=== PATIENT | male | born 1950 | race Caucasian/White ===

== ENCOUNTER 2019-06-04 09:19 | Emergency (ER) | payer MEDICARE ==
[~2019-06-04] VITALS: Ht 177.8 cm; Wt 91.4 kg
[~2019-06-04 09:19] MED LIST: ASPI81CH33 PO; CARV6.25 PO; CLON0.5T17 PO; FAMO20TA PO; FINA5TAB2 PO; MEMA10TA19 PO; NATU1TAB5 PO; PRAV40TA2 PO; TAMS1CAP17 PO
[2019-06-04 11:59] VITALS: O2SAT 94
[2019-06-04 12:38] LABS: HEMATOCRIT 45.4 % (42.0-52.0); HEMOGLOBIN 15.6 g/dl (13.5-17.5); MEAN CORPUSCULAR HEMOGLOBIN 34.2 pg (27.0-33.0); MEAN CORPUSCULAR HGB CONC 34.4 g/dl (32.0-36.5); MEAN CORPUSCULAR VOLUME 99.6 fl (80.0-96.0); PLATELET COUNT, AUTOMATED 168 10^3/uL (150-450); RED BLOOD COUNT 4.56 10^6/uL (4.30-6.10); WHITE BLOOD COUNT 7.9 10^3/uL (4.0-10.0)
[2019-06-04 13:12] LABS: ACETAMINOPHEN LEVEL < 2.0 UG/ML (10.0-30.0); ALBUMIN 4.2 GM/DL (3.2-5.2); ALT/SGPT 29 U/L (12-78); BILIRUBIN,DIRECT 0.2 MG/DL (0.0-0.2); BILIRUBIN,TOTAL 0.9 MG/DL (0.2-1.0); BLOOD UREA NITROGEN 18 MG/DL (7-18); CALCIUM LEVEL 9.4 MG/DL (8.8-10.2); CARBON DIOXIDE LEVEL 27 MEQ/L (21-32); CHLORIDE LEVEL 106 MEQ/L (98-107); CK-MB VALUE MASS 1.7 NG/ML (<3.6); CPK CREATINE PHOSPHOKINASE 101 U/L (39-308); CREATININE FOR GFR 1.02 MG/DL (0.70-1.30); ETHYL ALCOHOL (ETHANOL) < 0.003 % (0.000-0.010); GLOMERULAR FILTRATION RATE > 60.0 (>49); GLUCOSE, FASTING 104 MG/DL (70-100); MB/CK RELATIVE INDEX 1.68 (< OR =4); NT-PRO BNP 355 PG/ML (<125); POTASSIUM SERUM 4.1 MEQ/L (3.5-5.1); SALICYLATE LEVEL < 1.7 MG/DL (5.0-30.0); SODIUM LEVEL 141 MEQ/L (136-145); THYROID STIMULATING HORMONE 0.839 uIU/ML (0.358-3.740); TOTAL PROTEIN 7.3 GM/DL (6.4-8.2); TROPONIN I 0.02 NG/ML (< 0.10)
[2019-06-04 14:05] LABS: AMPHETAMINES LEVEL URINE NEGATIVE (NEGATIVE); BARBITURATES URINE NEGATIVE (NEGATIVE); BENZODIAZEPINES URINE NEGATIVE (NEGATIVE); CANNABINOIDS URINE NEGATIVE (NEGATIVE); COCAINE METABOLITE URINE NEGATIVE (NEGATIVE); METHADONE URINE NEGATIVE (NEGATIVE); OPIATES URINE NEGATIVE (NEGATIVE); PHENCYCLIDINE URINE NEGATIVE (NEGATIVE)
--- NOTE | 2019-06-04 14:26 | REP ---
CT brain without contrast: History: Altered mental status. No comparison CT study. 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 There is moderate vascular calcification in the distal carotid arteries. Bone window settings demonstrate an intact bony calvarium. No paranasal sinus disease or intraorbital abnormality is appreciated. On soft tissue window settings, there is minimal generalized volume loss. There is no evidence of intracranial hemorrhage. No mass, infarct, extra-axial fluid collection, or midline shift is seen. Impression: Minimal volume loss and vascular calcification. No acute intracranial abnormality. Electronically Signed by Star Berkowitz MD 06/04/2019 03:12 P
--- NOTE | 2019-06-04 14:33 | REP ---
REASON: Dyspnea. COMPARISON: None. There has been previous median sternotomy. The heart is mildly enlarged. The interstitial markings are mildly and diffusely increased. There is a haziness throughout the pulmonary vascularity with mild pulmonary vascular redistribution. There are no patchy opacities or pleural effusions. The lung kim are hypoexpanded accentuating all findings. IMPRESSION: Lung field hypoexpansion and findings as described above. Mild interstitial edema cannot be ruled out. Electronically Signed by Trevor Delacruz DO 06/04/2019 02:36 P
[2019-06-04 14:58] VITALS: BP 113/72
--- NOTE | 2019-06-05 10:15 | ECGEPIP ---
[facility] - ED Test Date: 2019-06-04 Pat Name: ROHAN WELLER Department: Room: - Gender: Male Community Engagement Manager: : [id number] Requested By: UBALDO Hdz Order Number: [id number] Reading MD: Debbie Mora Measurements Intervals [place] Rate: 47 P: 56 WI: 186 QRS: 103 QRSD: 160 T: -70 QT: 465 QTc: 415 Interpretive Statements SINUS BRADYCARDIA MARKED RIGHT AXIS DEVIATION RIGHT BUNDLE BRANCH BLOCK INFERIOR MYOCARDIAL INFARCTION, OF INDETERMINATE AGE ANTEROLATERAL MYOCARDIAL INFARCTION, OF INDETERMINATE AGE NO PRIOR FOR COMPARISON Electronically Signed on 06-05-2019 10:15:52 EDT by Debbie Mora
== END 2019-06-04 14:58 | disposition home or self-care (01) ==
LOC: M ED 09:19
DX: F41.9 Anxiety disorder, unspecified (principal); F33.9 Major depressive disorder, recurrent, unspecified; I45.10 Unspecified right bundle-branch block; R94.31 Abnormal electrocardiogram [ECG] [EKG]; G31.9 Degenerative disease of nervous system, unspecified; I67.2 Cerebral atherosclerosis; I10 Essential (primary) hypertension; N40.1 Benign prostatic hyperplasia with lower urinary tract symptoms; Z79.82 Long term (current) use of aspirin; Z79.899 Other long term (current) drug therapy; Z88.0 Allergy status to penicillin
CPT/HCPCS: 36415; 70450; 71046; 80048; 80076; 80307; 81001; 82550; 82553; 84443; 84484; 85027; 93005; 99285; G0480